=== PATIENT | female | born 1935 | race Two or more races ===

== ENCOUNTER 2021-09-29 10:15 | Inpatient (IN) | payer OTHER ==
[~2021-09-29] VITALS: Ht 157.5 cm; Wt 64.9 kg
[2021-09-29] MEDS ORDERED: VASOTEC20 M1 PO (12:21)
[2021-09-29] MEDS ORDERED: ATORVASTATIN CA10 MG PO (12:21)
[2021-09-29] MEDS ORDERED: TOPROL XL50 M1 PO (12:22)
[2021-09-29] MEDS ORDERED: SYNTHROID88 MCG PO (12:22)
[2021-09-29] MEDS ORDERED: AMLODIP PO (12:22)
[2021-09-29] MEDS ORDERED: ACID REDUCER20 M1 PO (12:23)
[2021-09-29] MEDS ORDERED: PLAVIX75 MG PO (12:23)
[2021-09-29] MEDS ORDERED: VITAMIN D PO (12:23)
[2021-09-29] MEDS ORDERED: TORSEMIDE PO (12:24)
[2021-10-01] MEDS ORDERED: AMLODIPINE BESYL5 MG PO (08:52)
[2021-10-01] MEDS ORDERED: SOAANZ20 MG PO (08:53)
[2021-10-01] MEDS ORDERED: VITAMIN D310 MC4 PO (08:54)
[2021-10-02] MEDS ORDERED: TRAMADOL HCL50 MG PO (09:53)
[2021-10-02] MEDS ORDERED: NEURONTIN300 MG PO (09:54)
== END 2021-10-02 14:24 | disposition home or self-care (01) | DRG 349 ==
LOC: EDSTATUS 10:15 → O/R 10-01 06:05 → CIR.AMB 10-01 10:15 → SURH 10-01 10:15 → EDSTATUS 10-01 10:15 → SURH 10-01 11:54
PROVIDERS: ADMIT Surgery; ATTEND Surgery
PROC: 06LY0CC Occlusion of Hemorrhoidal Plexus with Extraluminal Device, Open Approach (ICD-10-PCS; 2021-10-01)
PROC: 3E0T3BZ Introduction of Anesthetic Agent into Peripheral Nerves and Plexi, Percutaneous Approach (ICD-10-PCS; 2021-10-01)
PROC: 06BY0ZC Excision of Hemorrhoidal Plexus, Open Approach (ICD-10-PCS; principal; 2021-10-01 10:15)
DX: K64.8 Other hemorrhoids (principal); K64.4 Residual hemorrhoidal skin tags; Z20.822 Contact with and (suspected) exposure to COVID-19

== ENCOUNTER 2023-11-02 07:00 | Day surgery (SDC) | payer OTHER ==
[~2023-11-02 07:00] MED LIST: ACID REDUCER20 M1 PO; AMLODIP PO; AMLODIPINE BESYL5 MG PO; ATORVASTATIN CA10 MG PO; NEURONTIN300 MG PO; PLAVIX75 MG PO; SOAANZ20 MG PO; SYNTHROID88 MCG PO; TOPROL XL50 M1 PO; TORSEMIDE PO; TRAMADOL HCL50 MG PO; VASOTEC20 M1 PO; VITAMIN D PO; VITAMIN D310 MC4 PO
[2023-11-02] MEDS ORDERED: DIPHENHYDRAMINE HCL 50 MG/ML VIAL 1ML IV ONE (12:30)
[2023-11-02] MEDS ORDERED: fentaNYL CITRATE 50 MCG/ML AMPUL IV ONE (12:30)
[2023-11-02] MEDS ORDERED: MIDAZOLAM HCL 2 MG/2 ML VIAL IV ONE (12:30)
== END 2023-11-02 14:30 | disposition home or self-care (01) ==
LOC: AMB-ENDOS 07:00
PROVIDERS: ATTEND Surgery
DX: K57.30 Diverticulosis of large intestine without perforation or abscess without bleeding (principal); K52.89 Other specified noninfective gastroenteritis and colitis; K64.8 Other hemorrhoids

== ENCOUNTER 2024-02-20 11:30 | Inpatient (IN) | payer OTHER ==
[~2024-02-20] VITALS: Ht 91.4 cm; Wt 63.5 kg
[2024-02-20 11:20] VITALS: BP 151/82
[~2024-02-20 11:30] MED LIST changes: +ELIQUIS5 MG PO; +PEPCID AC20 MG PO; +SYNTHROID75 MCG PO
[2024-03-01] MEDS ORDERED: CEFTRIAXONE SODIUM 2,000 MG VIAL IV ONE (16:00)
[2024-03-01] MEDS ORDERED: LIDOCAINE HCL 1%/EPINEPHRINE 20ML VIAL IJ ONE (16:00)
[2024-03-01] MEDS ORDERED: METRONIDAZOLE/SODIUM CHLORIDE 500 MG/100 ML PIGGYBACK IV ONE (16:00)
[2024-03-01] MEDS ORDERED: BUPIVACAINE HCL 30 ML VIAL IJ ONE (16:00)
[2024-03-01] MEDS ORDERED: OxyCODONE HCL 5 MG TABLET (ROXICODONE) PO PRN (17:15)
[2024-03-01] MEDS ORDERED: RINGERS SOLUTION,LACTATED 1,000 ML IV SCH (17:15)
[2024-03-01] MEDS ORDERED: ONDANSETRON HCL 2 MG/ML VIAL IV PRN (17:15)
[2024-03-01] MEDS ORDERED: SUGAMMADEX SODIUM 200 MG/2 ML VIAL IV ONE (18:00)
[2024-03-01] MEDS ORDERED: ACETAMINOPHEN 500 MG GEL..CAP PO SCH (18:00)
[2024-03-01 18:22] VITALS: BP 107/57; O2SAT 97
[2024-03-01] MEDS ORDERED: MEPERIDINE HCL 25 MG/ML AMPUL IV ONE (19:00)
[2024-03-01] MEDS ORDERED: GABAPENTIN 300 MG CAPSULE PO SCH (21:00)
[2024-03-01] MEDS ORDERED: CIPROFLOXACIN IN 5 % DEXTROSE 400 MG/200 ML PIGGYBAG IV SCH (21:00)
[2024-03-01] MEDS ORDERED: FAMOTIDINE/PF 20 MG/2 ML VIAL IV PUSH SCH (21:00)
[2024-03-02 00:51] VITALS: BP 138/69; O2SAT 96
[2024-03-02] MEDS ORDERED: METRONIDAZOLE/SODIUM CHLORIDE 500 MG/100 ML PIGGYBACK IV SCH (01:00)
[2024-03-02 08:00] VITALS: BP 143/64; O2SAT 99
[2024-03-02 08:47] LABS: HEMATOCRIT 37.4 % (36.0-45.00); HEMOGLOBIN 12.5 g/dL (12.0-15.00); MEAN CELL VOLUME 87.5 fL (80.00-100.00); MEAN CORPUSCULAR HEMOGLOBIN 29.1 pg (27.00-32.0); MEAN CORPUSCULAR HGB CONC 33.3 g/dl (32.0-36.0); PLATELET COUNT 220 K/uL (150-450); RED BLOOD COUNT 4.27 M/uL (4.00-6.00); RED CELL DISTRIBUTION WIDTH 13.9 % (11.5-14.5)
[2024-03-02] MEDS ORDERED: HYOSCYAMINE SULFATE 0.125 MG TAB.SUBL SL SCH (09:00)
[2024-03-02] MEDS ORDERED: LACTOBACILLUS ACIDOPHILUS 1 CAP CAP PO SCH (09:00)
[2024-03-02] MEDS ORDERED: TAMSULOSIN HCL 0.4 MG CAP PO SCH (09:00)
[2024-03-02 09:03] LABS: CALCIUM 8.3 mg/dL (8.5-10.1); CREATININE SERUM 0.59 mg/dL (0.55-1.02); GFR 96.42; MAGNESIUM 1.9 mg/dL (1.8-2.4); POTASSIUM 4.03 mEq/L (3.5-5.1)
[2024-03-02] MEDS ORDERED: ENOXAPARIN SODIUM 40 MG/0.4 ML SYRINGE SUBCUTANEO SCH (17:00)
[2024-03-02] MEDS ORDERED: ATORVASTATIN CALCIUM 10 MG TABLET PO SCH (17:31)
[2024-03-02] MEDS ORDERED: ENALAPRILAT DIHYDRATE 1.25 MG/ML VIAL IV PRN (17:45)
[2024-03-03] VITALS: BP 125/60; O2SAT 95
[2024-03-03] MEDS ORDERED: LEVOTHYROXINE SODIUM 75 MCG TABLET PO SCH (06:00)
[2024-03-03 07:45] LABS: CALCIUM 7.9 mg/dL (8.5-10.1); CREATININE SERUM 0.67 mg/dL (0.55-1.02); GFR 83.26; MAGNESIUM 1.7 mg/dL (1.8-2.4); POTASSIUM 3.37 mEq/L (3.5-5.1)
[2024-03-03 08:00] VITALS: BP 165/72; O2SAT 97
[2024-03-03 08:38] LABS: PHOSPHOROUS 1.5 mg/dL (2.5-4.9)
[2024-03-03] MEDS ORDERED: PATIENTS OWN MEDICATION (MEDICAMENTO EN PISO) PO SCH (09:00)
[2024-03-03] MEDS ORDERED: METOPROLOL SUCCINATE 50 MG TAB.SR.24H PO SCH (09:00)
[2024-03-03] MEDS ORDERED: ENALAPRIL MALEATE 20 MG TABLET PO SCH (09:00)
[2024-03-03] MEDS ORDERED: AMLODIPINE BESYLATE 5 MG TABLET PO SCH (09:00)
[2024-03-03] MEDS ORDERED: ENOXAPARIN SODIUM 40 MG/0.4 ML SYRINGE SUBCUTANEO SCH (09:00)
[2024-03-03 09:27] LABS: HEMATOCRIT 32.8 % (36.0-45.00); MEAN CORPUSCULAR HEMOGLOBIN 29.1 pg (27.00-32.0); MEAN CORPUSCULAR HGB CONC 33.5 g/dl (32.0-36.0); PLATELET COUNT 192 K/uL (150-450); RED BLOOD COUNT 3.78 M/uL (4.00-6.00); RED CELL DISTRIBUTION WIDTH 14.2 % (11.5-14.5)
[2024-03-03] MEDS ORDERED: SODIUM CHLORIDE 0.45 % 1,000 ML IV SCH (09:30)
[2024-03-03] MEDS ORDERED: MAGNESIUM SULFATE IN WATER 50 ML IV NR (10:00)
[2024-03-03] MEDS ORDERED: POLYETHYLENE GLYCOL 3350 17 GM BLIST.PACK PO NR (11:00)
[2024-03-03] MEDS ORDERED: Cyanocobalamin/Mecobalamin 1 TAB.SL SL NR (11:00)
[2024-03-03] MEDS ORDERED: SOD FERRIC GLUC COMPLX/SUCROSE 62.5 MG/5 ML AMPUL IV NR (11:00)
[2024-03-03] MEDS ORDERED: POTASSIUM PHOS,M-BASIC-D-BASIC 3 MM/ML VIAL IV ONE (12:00)
[2024-03-03 15:08] VITALS: BP 135/67; O2SAT 96
[2024-03-03] MEDS ORDERED: POTASSIUM CHLORIDE 20MEQ/100ML H2O PB IV ONE (16:00)
[2024-03-04] VITALS: BP 129/60; O2SAT 99
[2024-03-04 08:00] VITALS: BP 130/66; O2SAT 94
[2024-03-04] MEDS ORDERED: Cyanocobalamin/Mecobalamin 1 TAB.SL SL SCH (09:00)
[2024-03-04] MEDS ORDERED: SOD FERRIC GLUC COMPLX/SUCROSE 62.5 MG in 0.9 % SODIUM CHLORIDE 50 ML IV SCH (09:00)
[2024-03-04 12:00] VITALS: BP 142/72; O2SAT 99
[2024-03-04] MEDS ORDERED: INTESTINEX680 M1 PO (12:21)
[2024-03-04] MEDS ORDERED: NEURONTIN300 MG PO (12:21)
== END 2024-03-04 14:48 | disposition home or self-care (01) | DRG 331 ==
LOC: O/R 03-01 07:00 → SURH 03-01 10:15 → SURG 03-01 18:35
PROVIDERS: Internal Medicine Geriatric Medicine; ADMIT Surgery; ATTEND Surgery
PROC: 0DBP4ZZ Excision of Rectum, Percutaneous Endoscopic Approach (ICD-10-PCS; 2024-03-01)
PROC: 0DNW4ZZ Release Peritoneum, Percutaneous Endoscopic Approach (ICD-10-PCS; 2024-03-01)
PROC: 0DJD8ZZ Inspection of Lower Intestinal Tract, Via Natural or Artificial Opening Endoscopic (ICD-10-PCS; 2024-03-01)
PROC: 0DTN4ZZ Resection of Sigmoid Colon, Percutaneous Endoscopic Approach (ICD-10-PCS; principal; 2024-03-01 10:15)
DX: K57.30 Diverticulosis of large intestine without perforation or abscess without bleeding (principal); K21.9 Gastro-esophageal reflux disease without esophagitis; K30 Functional dyspepsia; N73.6 Female pelvic peritoneal adhesions (postinfective); N99.4 Postprocedural pelvic peritoneal adhesions; R59.0 Localized enlarged lymph nodes